=== PATIENT | male | born 1970 | race Caucasian/White ===

== ENCOUNTER 2020-04-04 06:25 | Outpatient (CLI) | payer BC, OTHER ==
[2020-04-04 14:05] LABS: ALT (SGPT) 29 U/L (8-55); AST (SGOT) 29 U/L (5-34); Albumin 4.6 g/dL (3.5-5.0); Alkaline Phosphatase 56 U/L (40-110); Anion Gap 11 mmol/L (10-20); BUN (Urea Nitrogen) 20 mg/dL (8.9-20.6); Bilirubin, Total 0.7 mg/dL (0.2-1.2); Calc. Creatinine Clearance 0 mL/min (70-130); Calcium 9.4 mg/dL (7.8-10.44); Carbon Dioxide 26 mmol/L (22-29); Chloride 104 mmol/L (98-107); Estimated GFR-MDRD 76; Globulin 2.4 g/dL (2.4-3.5); Glucose 130 mg/dL (70-105); Potassium 4.3 mmol/L (3.5-5.1); Sodium 137 mmol/L (136-145)
[2020-04-04 14:13] LABS: #Lymphocytes 1.1 thou/uL (1.20-3.40); #Monocytes 0.5 thou/uL (0.11-0.59); #Neutrophils 3.6 thou/uL (1.40-6.50); %Basophils 0.1 % (0.0-1.0); %Eosinophils 0.9 % (0.0-10.0); %Lymphocytes 20.8 % (21.0-51.0); %Monocytes 8.7 % (0.0-10.0); %Neutrophils 69.5 % (42.0-75.0); Hemoglobin 15.9 g/dL (14.0-18.0); Large Platelets SLIGHT; MDiff Complete? YES; Mean Corpuscular Hemoglobin 31.6 pg (27.0-31.0); Mean Corpuscular Volume 92.8 fL (78.0-98.0); Mean Platelet Volume 11.2 fL (7.4-10.4); Platelet Count 98 thou/uL (130-400); Platelet Morphology Comment Appears Decreased; RBC Distribution Width 12.5 % (11.5-14.5); RBC Morphology Normal; Red Blood Cell (RBC) Count 5.03 mill/uL (4.70-6.10); White Blood Cell (WBC) Count 5.2 thou/uL (4.8-10.8)
[2020-04-04 19:44] LABS: SARS-CoV-2 MS2 Positive; SARS-CoV-2 N Gene Negative; SARS-CoV-2 S Gene Negative; SARS-CoV-2 by NAA Not Detected (NotDetected); SARS-CoV-2 orf1ab Negative
== END 2020-04-04 06:26 | disposition home or self-care (01) ==
LOC: LABBT 06:25
PROVIDERS: ATTEND Internal Medicine Cardiovascular Disease
DX: Z01.812 Encounter for preprocedural laboratory examination (principal); Z20.828 Contact with and (suspected) exposure to other viral communicable diseases; I25.10 Atherosclerotic heart disease of native coronary artery without angina pectoris
CPT/HCPCS: 80053; 85025; 87635; U0003

== ENCOUNTER → 2020-04-09 | Day surgery (SDC) | payer BC ==
[2020-04-04 14:36] VITALS: BMI 25.5
[~2020-04-09] MED LIST: Fentanyl 100 MCG/2 ML VIAL ONE; Iopamidol 370 76% 100 ML VIAL ONE; Lidocaine 1% (PF) 30 ML VIAL ONE; Midazolam HCl 2 mg/2 ml Vial ONE
--- NOTE | 2020-04-11 13:28 | DIS ---
DATE OF ADMISSION: 04/09/2020 DATE OF DISCHARGE: 04/09/2020 FINAL DIAGNOSES: 1. Congestive heart failure with an ejection fraction of 15%. 2. Two-vessel coronary artery disease. PROCEDURE: Left heart heart catheterization. The patient underwent catheterization, found to have ejection fraction of 15%, severely enlarged left ventricle. LV pressure 100/32. Left main normal to LAD. No obstructive stenosis. Circumflex 100% occlusion in the mid segment. Right coronary proximal occlusion of the circumflex and right coronary distribution filled via collaterals. Medical therapy is most appropriate. He has a LifeVest in place. MEDICATIONS: 1. He is on Entresto 24/26 twice a day for another week, then go to 49/51 twice a day. 2. Coreg 3.125 mg twice a day, increase dose at a later time to 6.25 mg twice a day. 3. He is on aspirin and statin. He will see us in the office in a couple of weeks. Hopefully at that point, can increase the carvedilol to 6.25 mg twice a day. Will likely need to wear the LifeVest for three months and then have an implantable defibrillator. Job ID: [id number]
== END ==
LOC: CCL 06:32
PROVIDERS: ATTEND Internal Medicine Cardiovascular Disease
PROC: 4A023N7 Measurement of Cardiac Sampling and Pressure, Left Heart, Percutaneous Approach (ICD-10-PCS; principal; 2020-04-09)
PROC: B2111ZZ Fluoroscopy of Multiple Coronary Arteries using Low Osmolar Contrast (ICD-10-PCS; principal; 2020-04-09)
DX: I25.10 Atherosclerotic heart disease of native coronary artery without angina pectoris (principal)
CPT/HCPCS: 76942; 93458; 99152; J1644; J2001; J2250; J3010; Q9967